=== PATIENT | female | born 1940 | race Caucasian/White ===

== ENCOUNTER 2020-06-16 10:57 | Emergency (ER) | payer MEDICARE, BC ==
--- NOTE | 2020-06-16 11:16 | EDM.PDOC ---
ED HPI GENERAL MEDICAL PROBLEM - General Chief Complaint: General Stated Complaint: syncope Time Seen by Provider: 06/16/20 11:00 Source of Information: Reports: Patient History Limitations: Reports: No Limitations - History of Present Illness INITIAL COMMENTS - FREE TEXT/NARRATIVE: This patient is an 80 year old female that presents to the ER. Patient reports that she was at [employer] this morning, she had been sitting, then went to stand. She reports once she stood, she felt lightheaded, then felt like she pass out. She reports she woke up in the synagogue pew and felt fine. She has arrived to the ER via EMS and denies any complaints. She reports she only feels like she needs to go #2. Patient reports she has had a mild runny nose at times, but has had that chronically. Patient denies hitting head, headache, n, v, vision changes, chest pain, shortness of breath, abd pain, urinary/bowel incontinence or changes. She denies any unilateral weaknesses or difficulty with thoughts or speaking. Onset: Today Onset Date: 06/16/20 Onset Time: 10:00 Severity: Moderate Improves with: Reports: None Worsens with: Reports: None Associated Symptoms: Reports: Syncope. Denies: Confusion, Chest Pain, Cough, cough w sputum, Diaphoresis, Fever/Chills, Headaches, Loss of Appetite, Malaise, Nausea/Vomiting, Rash, Seizure, Shortness of Breath, Weakness - Related Data Allergies Allergy/AdvReac Type Severity Reaction Status Date / Time aspirin Allergy Cannot Verified 06/16/20 10:58 Remember cephalexin Allergy Cannot Verified 06/16/20 10:58 Remember milk Allergy Rash Verified 06/16/20 10:58 Home Meds: Home Meds Furosemide [Lasix] 20 mg PO DAILY 03/31/16 [History] Lisinopril 10 mg PO DAILY 03/31/16 [History] Omeprazole Magnesium [Prilosec Otc] 20 mg PO DAILY 03/31/16 [History] Simvastatin [Zocor] 20 mg PO BEDTIME 03/31/16 [History] Verapamil [Calan SR] 180 mg PO DAILY 03/31/16 [History] ED ROS GENERAL - Review of Systems Review Of Systems: See Below Constitutional: Reports: No Symptoms HEENT: Reports: Rhinitis. Denies: Vision Change Respiratory: Reports: No Symptoms. Denies: Shortness of Breath, Cough, Sputum Cardiovascular: Reports: Lightheadedness, Syncope. Denies: Chest Pain, Blood Pressure Problem, Dyspnea on Exertion, Edema, Palpitations Endocrine: Reports: No Symptoms GI/Abdominal: Reports: No Symptoms. Denies: Abdominal Pain, Diarrhea, Nausea, Vomiting : Reports: No Symptoms Musculoskeletal: Reports: No Symptoms Skin: Reports: No Symptoms Neurological: Reports: Syncope. Denies: Confusion, Dizziness, Headache, Numbness, Seizure, Tingling, Tremors, Trouble Speaking, Difficulty Walking, Weakness, Change in Speech Psychiatric: Reports: No Symptoms Hematologic/Lymphatic: Reports: No Symptoms Immunologic: Reports: No Symptoms ED EXAM, GENERAL - Physical Exam Exam: See Below Exam Limited By: No Limitations General Appearance: Alert, WD/WN, No Apparent Distress Eye Exam: Bilateral Eye: EOMI, Normal Inspection, PERRL Ears: Normal External Exam, Normal Canal, Hearing Grossly Normal, Normal TMs Ear Exam: Bilateral Ear: Auricle Normal, Canal Normal, TM normal Nose: Normal Inspection, Normal Mucosa, No Blood Throat/Mouth: Normal Inspection, Normal Lips, Normal Teeth, Normal Gums, Normal Oropharynx, Normal Voice, No Airway Compromise Head: Atraumatic, Normocephalic Neck: Normal Inspection, Supple, Non-Tender, Full Range of Motion Respiratory/Chest: No Respiratory Distress, Lungs Clear, Normal Breath Sounds, No Accessory Muscle Use, Chest Non-Tender Cardiovascular: Normal Peripheral Pulses, Regular Rate, Rhythm, No Edema, No Gallop, No JVD, No Murmur, No Rub Peripheral Pulses: 2+: Carotid (L), Carotid (R), Radial (L), Radial (R), Posterior Tibial (L), Posterior Tibial (R), Dorsalis Pedis (L), Dorsalis Pedis (R) GI/Abdominal: Normal Bowel Sounds, Soft, Non-Tender, No Organomegaly, No Distention, No Abnormal Bruit, No Mass, Pelvis Stable (Female) Exam: Deferred Rectal (Female) Exam: Deferred Back Exam: Normal Inspection, Full Range of Motion. No: CVA Tenderness (L), CVA Tenderness (R), Decreased Range of Motion, Muscle Spasm, Paraspinal Tenderness, Vertebral Tenderness Extremities: Normal Inspection, Normal Range of Motion, Non-Tender, No Pedal Edema, Normal Capillary Refill Neurological: Alert, Oriented, CN II-XII Intact, Normal Cognition, Normal Gait, No Motor/Sensory Deficits Psychiatric: Normal Affect, Normal Mood Skin Exam: Warm, Dry, Intact, Normal Color, No Rash Lymphatic: No Adenopathy #1 Interpretation EKG Date: 06/16/20 Time: 11:15 Rate (Beats/Min): 70 [place]: Normal P-Wave: Present QRS: RBBB (incomplete) ST-T: Normal QT: Normal Course - Vital Signs Last Recorded V/S: Last Vital Signs Temp 97.2 F 06/16/20 11:10 Pulse 62 06/16/20 11:10 Resp 18 06/16/20 11:10 BP 117/63 06/16/20 11:10 Pulse Ox 96 06/16/20 11:10 - Orders/Labs/Meds Orders: Active Orders 24 hr Category Date Time Status Chest 2V [CR] Stat Exams 06/16/20 11:00 Taken Head wo Cont [CT] Stat Exams 06/16/20 11:11 Taken TROPONIN I [CHEM] Stat Lab 06/16/20 15:15 Ordered Labs: Laboratory Tests 06/16/20 06/16/20 06/16/20 Range/Units 11:15 11:15 11:15 WBC 6.1 (5.0-10.0) 10^3/uL RBC 4.55 (4.00-5.50) 10^6/uL Hgb 13.4 (12.0-16.0) g/dL Hct 41.6 (37.0-47.0) % MCV 91.4 (82.0-94.0) fL MCH 29.5 (27.0-32.0) pg MCHC 32.2 L (33.0-38.0) g/dL RDW Coeff of [place] 13.9 (11.0-15.0) % Plt Count 225 (150-400) 10^3/uL Neut % (Auto) 64.0 (35-85) % Lymph % (Auto) 28.7 (10-55) % [place] % (Auto) 6.2 (0-16) % Eos % (Auto) 1.1 (0-5) % Baso % (Auto) 0 (0-3) % Neut # (Auto) 3.93 (1.80-7.00) 10^3/uL Lymph # (Auto) 1.76 (1.00-4.80) 10^3/uL [place] # (Auto) 0.38 (0.00-0.80) 10^3/uL Eos # (Auto) 0.07 (0.00-0.45) 10^3/uL Baso # (Auto) 0.00 10^3/uL Sodium 139 (136-145) mEq/L Potassium 4.3 (3.5-5.0) mEq/L Chloride 105 (98-106) mEq/L Carbon Dioxide 24 (21-32) mmol/L BUN 24 H (7-18) mg/dL Creatinine 1.2 H (0.6-1.0) mg/dL Est Cr Clr Drug Dosing 28.59 mL/min Estimated GFR (MDRD) 43 L (>=60) mL/min Glucose 138 H D (75-99) mg/dL Calcium 9.2 (8.4-10.1) mg/dL Total Bilirubin 0.5 (0.0-1.0) mg/dL AST 20 (15-37) U/L ALT 22 (12-78) U/L Alkaline Phosphatase 69 (46-116) U/L Lactate Dehydrogenase 142 (100-190) U/L Creatine Kinase 32 (21-215) U/L Troponin I < 0.017 (0.00-0.06) ng/mL Total Protein 7.7 (6.4-8.2) g/dL Albumin 3.6 (3.4-5.0) g/dL Urine Color (YELLOW) Urine Appearance (CLEAR) Urine pH (4.5-8.0) Ur Specific [place] (1.003-1.020) Urine Protein (NEGATIVE) mg/dL Urine Glucose (UA) (NEGATIVE) mg/dL Urine Ketones (NEGATIVE) mg/dL Urine Occult Blood (NEGATIVE) Urine Nitrite (NEGATIVE) Urine Bilirubin (NEGATIVE) Urine Urobilinogen (0.2-1.0) EU/dL Ur Leukocyte Esterase (NEGATIVE) Urine RBC (0-5) /HPF Urine WBC (0-5) /HPF SARS CoV-2 RNA Rapid CHAMP Negative (NEGATIVE) 06/16/20 Range/Units 11:51 WBC (5.0-10.0) 10^3/uL RBC (4.00-5.50) 10^6/uL Hgb (12.0-16.0) g/dL Hct (37.0-47.0) % MCV (82.0-94.0) fL MCH (27.0-32.0) pg MCHC (33.0-38.0) g/dL RDW Coeff of [place] (11.0-15.0) % Plt Count (150-400) 10^3/uL Neut % (Auto) (35-85) % Lymph % (Auto) (10-55) % [place] % (Auto) (0-16) % Eos % (Auto) (0-5) % Baso % (Auto) (0-3) % Neut # (Auto) (1.80-7.00) 10^3/uL Lymph # (Auto) (1.00-4.80) 10^3/uL [place] # (Auto) (0.00-0.80) 10^3/uL Eos # (Auto) (0.00-0.45) 10^3/uL Baso # (Auto) 10^3/uL Sodium (136-145) mEq/L Potassium (3.5-5.0) mEq/L Chloride (98-106) mEq/L Carbon Dioxide (21-32) mmol/L BUN (7-18) mg/dL Creatinine (0.6-1.0) mg/dL Est Cr Clr Drug Dosing mL/min Estimated GFR (MDRD) (>=60) mL/min Glucose (75-99) mg/dL Calcium (8.4-10.1) mg/dL Total Bilirubin (0.0-1.0) mg/dL AST (15-37) U/L ALT (12-78) U/L Alkaline Phosphatase (46-116) U/L Lactate Dehydrogenase (100-190) U/L Creatine Kinase (21-215) U/L Troponin I (0.00-0.06) ng/mL Total Protein (6.4-8.2) g/dL Albumin (3.4-5.0) g/dL Urine Color Yellow (YELLOW) Urine Appearance Clear (CLEAR) Urine pH 5.5 (4.5-8.0) Ur Specific [place] 1.020 (1.003-1.020) Urine Protein Negative (NEGATIVE) mg/dL Urine Glucose (UA) Negative (NEGATIVE) mg/dL Urine Ketones Negative (NEGATIVE) mg/dL Urine Occult Blood Negative (NEGATIVE) Urine Nitrite Negative (NEGATIVE) Urine Bilirubin Negative (NEGATIVE) Urine Urobilinogen 0.2 (0.2-1.0) EU/dL Ur Leukocyte Esterase Negative (NEGATIVE) Urine RBC Not seen (0-5) /HPF Urine WBC Not seen (0-5) /HPF SARS CoV-2 RNA Rapid CHAMP (NEGATIVE) Meds: Medications Discontinued Medications Generic Name Dose Route Start Last Admin Trade Name Cuco PRN Reason Stop Dose Admin Sodium Chloride 1,000 mls @ 1,000 mls/hr 06/16/20 11:37 Normal Saline IV 06/16/20 12:36 .BOLUS ONE - Radiology Interpretation Free Text/Narrative:: CXR: no acute findings Head CT: no acute findings CT Results Date: 06/16/20 CT Results Time: 12:45 - Re-Assessments/Exams Free Text/Narrative Re-Assessment/Exam: 06/16/20 13:12 Patient reports she has no complaints. Awaiting repeat troponin,. if normal and still no complaints, will discharge. Departure - Departure Time of Disposition: 15:40 Disposition: Home, Self-Care 01 Condition: Fair Clinical Impression: Near syncope - Discharge Information *PRESCRIPTION DRUG MONITORING PROGRAM REVIEWED*: Not Applicable *COPY OF PRESCRIPTION DRUG MONITORING REPORT IN PATIENT ANTHONY: Not Applicable Instructions: Near-Syncope, [id number] Referrals: Fabienne Hoang PA [Primary Care Provider] - Forms: ED Department Discharge Additional Instructions: Followup with primary care provider Return to the ER for worsening of condition or any emergent concerns Increase fluid intake Go home and rest Sepsis Event Note (ED) - Focused Exam Vital Signs: Vital Signs Temp Pulse Resp BP Pulse Ox 06/16/20 11:10 97.2 F 62 18 117/63 96 - My Orders Last 24 Hours: My Active Orders 06/16/20 11:00 Chest 2V [CR] Stat 06/16/20 11:11 Head wo Cont [CT] Stat 06/16/20 15:15 TROPONIN I [CHEM] Stat - Assessment/Plan Last 24 Hours: My Active Orders 06/16/20 11:00 Chest 2V [CR] Stat 06/16/20 11:11 Head wo Cont [CT] Stat 06/16/20 15:15 TROPONIN I [CHEM] Stat Plan: PLEASE SEE RN NOTE FOR PFSH
[2020-06-16 11:33] LABS: CHLORIDE,CL 105 mEq/L (98-106); SODIUM,NA 139 mEq/L (136-145)
[2020-06-16] MEDS ORDERED: Sodium Chloride 0.9% 1,000 ML IV ONE (11:37)
== END 2020-06-16 15:50 | disposition home or self-care (01) ==
LOC: CC.ED 10:57
DX: R55 Syncope and collapse (principal); Z20.822 Contact with and (suspected) exposure to COVID-19; Z88.6 Allergy status to analgesic agent; Z88.1 Allergy status to other antibiotic agents; Z91.011 Allergy to milk products; Z79.899 Other long term (current) drug therapy
CPT/HCPCS: 36415; 70450; 71046; 80053; 81001; 82550; 83615; 84484; 85025; 93005; 99284; 99285-25; J7030; U0002